=== PATIENT | female | born 1965 | race African-American/Black ===

== ENCOUNTER 2024-01-26 11:29 | Outpatient (CLI) | payer BC ==
[2024-01-26 13:33] LABS: #Basophils 0.05 10x3/uL (0.0-0.2); #Eosinophils 0.09 10x3/uL (0.0-0.5); #Monocytes 0.64 10x3/uL (0.0-1.1); #Neutrophils 4.74 10x3/uL (1.5-8.4); %Basophils 0.6 % (0.0-2.0); %Eosinophils 1.1 % (0.0-6.0); %Lymphocytes 29.6 % (18.0-47.0); %Monocytes 8.1 % (0.0-10.0); %Neutrophils 60.2 % (40.0-75.0); Hematocrit 39.3 % (34.9-44.5); Hemoglobin 12.7 g/dL (12.0-15.5); Mean Corpuscular HGB CONC 32.3 g/dL (32.0-36.0); Mean Corpuscular Hemoglobin 27.9 pg (27.0-33.0); Mean Corpuscular Volume 86.2 fL (81.6-98.3); Mean Platelet Volume 11.3 fL (7.4-10.4); Platelet Count 254 10x3/uL (150-450); RBC Distribution Width 14.4 % (11.5-14.5); Red Blood Cell (RBC) Count 4.56 10x6/uL (3.90-5.03); White Blood Cell (WBC) Count 7.9 10x3/uL (3.5-10.5)
[2024-01-26 13:38] LABS: Anion Gap 14 mmol/L (10-20); BUN (Urea Nitrogen) 15 mg/dL (9.8-20.1); Calc. Creatinine Clearance 0 mL/min (70-130); Calcium 10.3 mg/dL (7.8-10.44); Carbon Dioxide 27 mmol/L (22-29); Chloride 105 mmol/L (98-107); Estimated GFR 76; Glucose 85 mg/dL (70-105); Potassium 3.7 mmol/L (3.5-5.1); Sodium 142 mmol/L (136-145)
== END 2024-01-26 11:30 | disposition home or self-care (01) ==
LOC: CSHLAB 11:29
PROVIDERS: ATTEND Surgery
DX: Z01.818 Encounter for other preprocedural examination (principal); N63.20 Unspecified lump in the left breast, unspecified quadrant
CPT/HCPCS: 80048; 85025; 93005; 93010

== ENCOUNTER 2024-01-31 06:10 | Day surgery (SDC) | payer BC ==
[2024-01-26 12:05] VITALS: BMI 34.9
[2024-01-31] MEDS ORDERED: fentaNYL 50 mcg/mL 1 mL Vial ONE (10:11)
[2024-01-31] MEDS ORDERED: Lidocaine 1% PF 5 ML VIAL ONE (10:11)
[2024-01-31] MEDS ORDERED: PROPOFOL 20 ML ONE (10:11)
[2024-01-31] MEDS ORDERED: Methylene Blue 50 MG/10 ML AMPUL ONE (10:54)
[2024-01-31] MEDS ORDERED: Bupivacaine/Epinephrine 0.25% 30 ML VIAL ONE (10:55)
[2024-01-31] MEDS ORDERED: Lidocaine 2% PF 5 ML VIAL ONE (10:55)
[2024-01-31] MEDS ORDERED: CEFAZOLIN 2 GM VIAL ONE (11:24)
[2024-01-31] MEDS ORDERED: Ondansetron PF 4 MG/2 ML Vial ONE (11:42)
[2024-01-31] MEDS ORDERED: Dexamethasone 4 mg/ml Vial ONE (11:42)
== END 2024-01-31 14:00 | disposition home or self-care (01) ==
LOC: CSHSDC 06:10
PROVIDERS: ATTEND Surgery
PROC: 0HBU0ZZ Excision of Left Breast, Open Approach (ICD-10-PCS; principal; 2024-01-31)
DX: D24.1 Benign neoplasm of right breast (principal); N60.82 Other benign mammary dysplasias of left breast; I10 Essential (primary) hypertension; Z88.0 Allergy status to penicillin; Z88.5 Allergy status to narcotic agent; Z88.8 Allergy status to other drugs, medicaments and biological substances
CPT/HCPCS: 19285; 76098; 88305; C1713; J1100; J2405; J2704; J3010

== ENCOUNTER 2024-12-27 09:10 | Outpatient (CLI) | payer BC | END 2024-12-27 09:11 | disposition home or self-care (01) | LOC: CSHULT 09:10 | PROVIDERS: ATTEND Family Medicine | DX: R60.0 Localized edema (principal) | CPT/HCPCS: 76856 ==